=== PATIENT | male | born 2000 | race African-American/Black ===

== ENCOUNTER → 2023-01-02 09:41 | Outpatient (CLI) | payer OTHER, SELFPAY ==
--- NOTE | 2023-01-02 | DI.RAD.S_ITS ---
PROCEDURE: XR HAND RT 2V INDICATIONS: ARTHRITIS TECHNIQUE: 2 views of the hand(s) acquired. COMPARISON: None. FINDINGS: Bones: No fractures or dislocations. Carpal bones are normally aligned. No suspicious bony lesions. Soft tissues: No suspicious soft tissue calcifications. IMPRESSION: No radiographic evidence of arthritis. Dictated by: Morales Jauregui M.D. on 01/02/2023 at 10:58 Approved by: Morales Jauregui M.D. on 01/02/2023 at 10:59
--- NOTE | 2023-01-02 | DI.RAD.S_ITS ---
PROCEDURE: XR HAND LT 2V INDICATIONS: ARTHRITIS TECHNIQUE: 2 views of the hand(s) acquired. COMPARISON: None. FINDINGS: Bones: No fractures or dislocations. Carpal bones are normally aligned. No suspicious bony lesions. Soft tissues: No suspicious soft tissue calcifications. IMPRESSION: No radiographic evidence of arthritis. Dictated by: Morales Jauregui M.D. on 01/02/2023 at 10:57 Approved by: Morales Jauregui M.D. on 01/02/2023 at 10:58
== END ==
PROVIDERS: Referring Provider Chiropractor; Visit Provider Chiropractor
DX: M13.80 Other specified arthritis, unspecified site (principal)
CPT/HCPCS: 73120